=== PATIENT | male | born 1995 | race Caucasian/White ===

== ENCOUNTER 2017-10-23 18:25 | Emergency (ER) | payer BC ==
[2017-10-23] MEDS ORDERED: SODIUM CHLORIDE 0.9% FLUSH 10 ML FLUSH IVF (19:15)
[2017-10-23] MEDS ORDERED: RABIES IMMUNE GLOBULIN INJ 300 UNITS/2 ML VIAL IM (19:15)
[2017-10-23] MEDS: AMPICILLIN-SULBACTAM INJ 3 GM in SODIUM CHLORIDE 0.9% INJ 100 ML IV (20:51)
[2017-10-23] MEDS: KETOROLAC TROMETHAMINE 30 MG/ML (IVP) VIAL IVP (20:51)
[2017-10-23] MEDS: LIDOCAINE 2%/EPINEPHrine 1:100,000 20ML MDV NERV BLOCK (20:51)
[2017-10-23 20:56] LABS: AUTOMATED NEUTROPHIL # 14.5 TH/MM3 (1.8-7.7); BASOPHIL % 0.2 % (0.0-2.0); EOSINOPHIL # 0.1 TH/MM3 (0-0.4); EOSINOPHIL % 0.3 % (0.0-4.0); HEMO FLAGS DIFF FINAL; LYMPH % 10.3 % (9.0-44.0); LYMPHOCYTE # 1.8 TH/MM3 (1.0-4.8); MEAN CELL VOLUME 90.4 FL (80.0-100.0); MEAN CORPUSCULAR HEMOGLOBIN 30.9 PG (27.0-34.0); MEAN CORPUSCULAR HGB CONC 34.2 % (32.0-36.0); MEAN PLATELET VOLUME 8.3 FL (7.0-11.0); MONO % 6.9 % (0.0-8.0); MONOCYTE # 1.2 TH/MM3 (0-0.9); NEUT % 82.3 % (16.0-70.0); PLATELET COUNT 220 TH/MM3 (150-450); RED BLOOD COUNT 4.86 MIL/MM3 (4.50-5.90); RED CELL DISTRIBUTION WIDTH 14.1 % (11.6-17.2); WHITE BLOOD COUNT 17.6 TH/MM3 (4.0-11.0)
[2017-10-23] MEDS: TETANUS/DIPHTHERIA TOXOID ADULT 0.5 ML VIAL IM (21:13)
[2017-10-23] MEDS ORDERED: RABIES IMMUNE GLOBULIN INJ 1,500 UNITS/10 ML VIAL IM (21:15)
[2017-10-23] MEDS: RABIES IMMUNE GLOBULIN INJ 1,500 UNITS/10 ML VIAL IM (21:27)
== END 2017-10-23 22:11 | disposition home or self-care (01) ==
LOC: NEPC 18:25
DX: S01.85XA Open bite of other part of head, initial encounter (principal); W54.0XXA Bitten by dog, initial encounter; Y92.007 Garden or yard of unspecified non-institutional (private) residence as the place of occurrence of the external cause; G40.909 Epilepsy, unspecified, not intractable, without status epilepticus; F12.90 Cannabis use, unspecified, uncomplicated; Z23 Encounter for immunization
CPT/HCPCS: 12013; 12054; 85025; 90375; 90471; 90472; 90714; 96365; 96375; 99284-25

== ENCOUNTER 2017-10-26 13:29 | Emergency (ER) | payer BC ==
[~2017-10-26] VITALS: Ht 180.3 cm; Wt 59.0 kg
[~2017-10-26 13:29] MED LIST: AUGM875T3 PO; IBUP1TAB7 PO; TRAM50TA PO
[2017-10-26 13:31] VITALS: BP 127/91; PULSE 105; RESP 18; TEMP 98.9; O2SAT 99
--- NOTE | 2017-10-26 14:00 | PD ---
Physical Exam Time Seen by Provider: 13:58 Narrative 22-year-old male presents for a second round of rabies vaccination. Has no other medical complaints. Denies fever, vomiting. Patient seen in triage. VS reviewed. Awaiting bed placement. See next providers note for final patient disposition. Data Data Last Documented VS Vital Signs Date Time Temp Pulse Resp B/P (MAP) Pulse Ox O2 Delivery O2 Flow Rate FiO2 10/26/17 13:31 98.9 105 18 127/91 (103) 99 Room Air [facility] Supervised Visit with DORA: Blossom Sanchez Oct 26, 2017 14:00
[2017-10-26] MEDS ORDERED: RABIES VACCINE CHICK EMB INJ 2.5 UNITS/ML SYR IM ONE (14:15)
--- NOTE | 2017-10-26 15:44 | PD ---
HPI Chief Complaint: Medical Clearance Time Seen by Provider: 15:28 Travel History International Travel<30 days: No Contact w/Intl Traveler<30days: No Traveled to known affect area: No History of Present Illness HPI 22-year-old male presents emergency department for his second dose of rabies vaccination. Patient states that he was here several days ago after he was attacked by dogs. Patient states it is doing well other than having pain from his wounds. Patient denies fevers or chills. Denies nausea, vomiting or diarrhea. He has no other complaints today. PFSH Past Medical History Neurologic: Yes (EPILEPSY ) Social History Alcohol Use: No Tobacco Use: Yes Substance Use: Yes (CANNABIS) Allergies-Medications (Allergen,Severity, Reaction): Coded Allergies: No Known Allergies (Unverified , 10/23/17) Reported Meds & Prescriptions Reported Meds & Active Scripts Active Tramadol (Tramadol HCl) 50 Mg Tab 50 Mg PO Q6H PRN Ibuprofen 800 Mg Tab 800 Mg PO Q8H PRN Augmentin (Amoxicillin-Clavulanate) 875-125 Mg Tab 1 Tab PO BID 7 Days Review of Systems Except as stated in HPI: all other systems reviewed are Neg Physical Exam Narrative GENERAL: Well-nourished, well-developed patient. Sitting comfortably in bed SKIN: Focused skin assessment warm/dry. 3 mostly linear lacerations to the right face/cheek. Sutures in place. Minimal erythema. No exudate. HEAD: Normocephalic. EYES: No scleral icterus. No injection or drainage. NECK: Supple, trachea midline. No JVD MUSCULOSKELETAL: No cyanosis, or edema. BACK: Nontender without obvious deformity. No CVA tenderness. PSYCHIATRIC: No delusional thought processes. No hallucinations. Data Data Last Documented VS Vital Signs Date Time Temp Pulse Resp B/P (MAP) Pulse Ox O2 Delivery O2 Flow Rate FiO2 10/26/17 13:31 98.9 105 18 127/91 (103) 99 Room Air Orders Orders Rabies Vaccine Chick Emb Inj (Rabavert I (10/26/17 14:15) Ed Discharge Order (10/26/17 15:44) MDM Medical Decision Making Medical Screen Exam Complete: Yes Emergency Medical Condition: Yes Differential Diagnosis Rabies vaccination, medical clearance, wound check Narrative Course 22-year-old male presents emergency department for his second dose of rabies vaccination. Patient states that he was here several days ago after he was attacked by dogs. Patient states it is doing well other than having pain from his wounds. Patient denies fevers or chills. Denies nausea, vomiting or diarrhea. He has no other complaints today. Vital signs stable. Rabies vaccination administered today. Patient advised to follow-up today or and . Patient was advised to return on the last day of his vaccinations for suture removal. Advised patient that if he develops increased swelling, redness or pus return to the emergency Department immediately. Continue medications as prescribed. Diagnosis Primary Impression: Need for rabies vaccination Referrals: [facility] Additional Instructions: Your next follow-up is October 30, then November 06 for the vaccination. If he developed increased redness, swelling or pain return first department. Disposition: 01 DISCHARGE HOME Condition: Stable Heidi Maciel Oct 26, 2017 15:44
== END 2017-10-26 16:03 | disposition home or self-care (01) ==
LOC: NEPK 13:29
DX: Z29.14 Encounter for prophylactic rabies immune globulin (principal); G40.909 Epilepsy, unspecified, not intractable, without status epilepticus; Z72.0 Tobacco use
CPT/HCPCS: 90471; 90675

== ENCOUNTER 2017-11-02 20:12 | Emergency (ER) | payer BC ==
[~2017-11-02] VITALS: Ht 185.4 cm; Wt 68.0 kg
[2017-11-02 20:14] VITALS: BP 159/96; PULSE 106; RESP 18; TEMP 99; O2SAT 100
[2017-11-02] MEDS ORDERED: KETOROLAC TROMETHAMINE 30 MG/ML (IVP) VIAL IV PUSH ONE (21:00)
[2017-11-02] MEDS ORDERED: SODIUM CHLOR 0.9% 1000 ML INJ 1,000 ML IV ONE (21:00)
[2017-11-02] MEDS ORDERED: ONDANSETRON HCL 4 MG/2 ML VIAL IV PUSH ONE (21:00)
--- NOTE | 2017-11-02 21:09 | RADRPT ---
EXAM DATE/TIME: 11/02/2017 21:00 [facility] COMPARISON: No previous studies available for comparison. INDICATIONS : Fever, cough MEDICAL HISTORY : None. SURGICAL HISTORY : None. ENCOUNTER: Initial ACUITY: 3 days PAIN SCORE: 0/10 LOCATION: chest FINDINGS: PA and lateral views of the chest demonstrate the lungs to be symmetrically aerated without evidence of mass, infiltrate or effusion. The cardiomediastinal contours are unremarkable. Osseous structure s are intact. CONCLUSION: No acute disease. Marco Antonio Helton MD on November 02, 2017 at 21:07 Board Certified Radiologist. This report was verified electronically.
[2017-11-02 21:54] LABS: AUTOMATED NEUTROPHIL # 3.6 TH/MM3 (1.8-7.7); BASOPHIL % 0.3 % (0.0-2.0); HEMATOCRIT 42.6 % (39.0-51.0); HEMOGLOBIN 14.4 GM/DL (13.0-17.0); LYMPH % 12.6 % (9.0-44.0); LYMPHOCYTE # 0.6 TH/MM3 (1.0-4.8); MEAN CORPUSCULAR HEMOGLOBIN 30.6 PG (27.0-34.0); MEAN CORPUSCULAR HGB CONC 33.9 % (32.0-36.0); MEAN PLATELET VOLUME 7.6 FL (7.0-11.0); MONO % 11.3 % (0.0-8.0); MONOCYTE # 0.5 TH/MM3 (0-0.9); NEUT % 74.8 % (16.0-70.0); PLATELET COUNT 202 TH/MM3 (150-450); RED BLOOD COUNT 4.73 MIL/MM3 (4.50-5.90); RED CELL DISTRIBUTION WIDTH 13.9 % (11.6-17.2); WHITE BLOOD COUNT 4.9 TH/MM3 (4.0-11.0)
[2017-11-02 22:11] LABS: AST (GOT) 17 U/L (15-37); BICARBONATE 29.9 MEQ/L (21.0-32.0); BLOOD UREA NITROGEN 11 MG/DL (7-18); CALCIUM 8.5 MG/DL (8.5-10.1); CHLORIDE 105 MEQ/L (98-107); CREATININE 1.07 MG/DL (0.60-1.30); GLOMERULAR FILTRATION RATE 86 ML/MIN (>89); GLUCOSE,RANDOM 96 MG/DL (74-106); SODIUM (NA) 139 MEQ/L (136-145)
[2017-11-02 22:12] LABS: ALT (GPT) 20 U/L (12-78)
[2017-11-02 22:14] LABS: ALKALINE PHOSPHATASE 93 U/L (45-117); TOTAL BILIRUBIN ADULT 0.2 MG/DL (0.2-1.0); TOTAL PROTEIN 7.4 GM/DL (6.4-8.2)
--- NOTE | 2017-11-02 23:07 | PD ---
HPI Chief Complaint: Cold / Flu Symptoms Time Seen by Provider: 20:27 Travel History International Travel<30 days: No Contact w/Intl Traveler<30days: No Traveled to known affect area: No History of Present Illness HPI Patient is a 22 year old male who comes in complaining of bodyaches, cough, nausea, vomiting, fevers. He says this started yesterday. He denies abdominal pain. He was on antibiotics for a dog bite, which he finished 3 days ago. He says the wound seems to be doing well, but he has some pain around the corned of his mouth. He says he felt febrile, but he did not take his temperature. He says nothing makes his symptoms better or worse. He also reports missing his last rabies vaccine. [facility] Past Medical History Neurologic: Yes (EPILEPSY ) Social History Alcohol Use: No Tobacco Use: Yes Substance Use: Yes (CANNABIS) Allergies-Medications (Allergen,Severity, Reaction): Coded Allergies: No Known Allergies (Unverified , 11/02/17) Reported Meds & Prescriptions Reported Meds & Active Scripts Active Ibuprofen 800 Mg Tab 800 Mg PO Q8H PRN Review of Systems Except as stated in HPI: all other systems reviewed are Neg General / Constitutional: Positive: Fever, Chills HENT: Positive: Headaches, Congestion Cardiovascular: No: Chest Pain or Discomfort Respiratory: Positive: Cough, No: Shortness of Breath Gastrointestinal: Positive: Nausea, Vomiting, No: Abdominal Pain Genitourinary: No: Dysuria Musculoskeletal: Positive: Myalgias Skin: No Rash, No Change in Pigmentation Neurologic: No: Weakness, Dizziness Physical Exam Narrative GENERAL: Awake and alert, in no acute distress. SKIN: Focused skin assessment warm/dry. Wound to the face healing well, no erythema or oozing. HEAD: Atraumatic. Normocephalic. EYES: Pupils equal and round. No scleral icterus. No injection or drainage. ENT: Mucous membranes pink and moist. Wound near the right corned of the mouth with some dehiscence. NECK: Trachea midline. No JVD. CARDIOVASCULAR: Regular rate and rhythm. No murmur appreciated. RESPIRATORY: No accessory muscle use. Clear to auscultation. Breath sounds equal bilaterally. GASTROINTESTINAL: Abdomen soft, non-tender, nondistended. MUSCULOSKELETAL: No obvious deformities. No clubbing. No cyanosis. No edema. NEUROLOGICAL: Awake and alert. No obvious cranial nerve deficits. Motor grossly within normal limits. Normal speech. PSYCHIATRIC: Appropriate mood and affect; insight and judgment normal. Data Data Last Documented VS Vital Signs Date Time Temp Pulse Resp B/P (MAP) Pulse Ox O2 Delivery O2 Flow Rate FiO2 11/02/17 20:14 99.0 106 18 159/96 (117) 100 Orders Orders Iv Access Insert/Monitor (11/02/17 20:52) Complete Blood Count With Diff (11/02/17 20:52) Comprehensive Metabolic Panel (11/02/17 20:52) Influenzae A/B Antigen (11/02/17 20:52) Chest, Pa & Lat (11/02/17 ) Sodium Chlor 0.9% 1000 Ml Inj (Ns 1000 M (11/02/17 21:00) Ketorolac Inj (Toradol Inj) (11/02/17 21:00) Ondansetron Inj (Zofran Inj) (11/02/17 21:00) Rabies Vaccine Chick Emb Inj (Rabavert I (11/02/17 23:15) Labs Laboratory Tests Test 11/02/17 21:30 White Blood Count 4.9 TH/MM3 Red Blood Count 4.73 MIL/MM3 Hemoglobin 14.4 GM/DL Hematocrit 42.6 % Mean Corpuscular Volume 90.0 FL Mean Corpuscular Hemoglobin 30.6 PG Mean Corpuscular Hemoglobin Concent 33.9 % Red Cell Distribution Width 13.9 % Platelet Count 202 TH/MM3 Mean Platelet Volume 7.6 FL Neutrophils (%) (Auto) 74.8 % Lymphocytes (%) (Auto) 12.6 % Monocytes (%) (Auto) 11.3 % Eosinophils (%) (Auto) 1.0 % Basophils (%) (Auto) 0.3 % Neutrophils # (Auto) 3.6 TH/MM3 Lymphocytes # (Auto) 0.6 TH/MM3 Monocytes # (Auto) 0.5 TH/MM3 Eosinophils # (Auto) 0.0 TH/MM3 Basophils # (Auto) 0.0 TH/MM3 CBC Comment DIFF FINAL Differential Comment Blood Urea Nitrogen 11 MG/DL Creatinine 1.07 MG/DL Random Glucose 96 MG/DL Total Protein 7.4 GM/DL Albumin 4.0 GM/DL Calcium Level 8.5 MG/DL Alkaline Phosphatase 93 U/L Aspartate Amino Transf (AST/SGOT) 17 U/L Alanine Aminotransferase (ALT/SGPT) 20 U/L Total Bilirubin 0.2 MG/DL Sodium Level 139 MEQ/L Potassium Level 3.8 MEQ/L Chloride Level 105 MEQ/L Carbon Dioxide Level 29.9 MEQ/L Anion Gap 4 MEQ/L Estimat Glomerular Filtration Rate 86 ML/MIN MDM Medical Decision Making Medical Screen Exam Complete: Yes Emergency Medical Condition: Yes Medical Record Reviewed: Yes Differential Diagnosis Influenza vs URI vs pneumonia Narrative Course Patient is a 22 year old male who comes in complaining of bodyaches, fever, cough. IV established, labs sent. Labs show no acute abnormalities. Influenza screen is positive. Given IVF, Toradol, Zofran. He is eating and drinking without an issue. Patient given Rabies vaccine. Advised to drink plenty of fluids. Advised to take Tylenol or Ibuprofen for pain or fever. Given a prescription for Tamiflu and Keflex for his wound. Advised to return as needed for any worsening symptoms. Diagnosis Primary Impression: Influenza A Patient Instructions: General Instructions, Influenza (ED) Additional Instructions: Drink plenty of fluids. Take Tylenol or ibuprofen as needed for pain or fever. Follow up in 7 days for repeat rabies vaccine. Return as needed for any worsening symptoms. Scripts Cephalexin (Keflex) 500 Mg Capsule 500 MG PO Q6H for Infection for 7 Days, #28 CAP 0 Refills Prov: Miesha Putnam MD 11/02/17 Oseltamivir (Tamiflu) 75 Mg Cap 75 MG PO BID for Mgmt Viral Infection for 5 Days, #10 CAP 0 Refills Prov: Miesha Putnam MD 11/02/17 Disposition: 01 DISCHARGE HOME Condition: Stable Miesha Putnam MD Nov 02, 2017 23:07
[2017-11-02] MEDS ORDERED: RABIES VACCINE CHICK EMB INJ 2.5 UNITS/ML SYR IM ONE (23:15)
[2017-11-02] MEDS ORDERED: OSEL75 PO (23:28)
[2017-11-02] MEDS ORDERED: CEPH-460 PO (23:28)
[2017-11-03] VITALS: BP 125/80; PULSE 101; RESP 16; O2SAT 100
== END 2017-11-03 00:10 | disposition home or self-care (01) ==
LOC: NEPD 20:12
DX: J09.X2 Influenza due to identified novel influenza A virus with other respiratory manifestations (principal); R11.2 Nausea with vomiting, unspecified; G40.909 Epilepsy, unspecified, not intractable, without status epilepticus; Z72.0 Tobacco use; Z29.14 Encounter for prophylactic rabies immune globulin
CPT/HCPCS: 71046; 80053; 85025; 87804; 90471; 90675; 96361; 96374; 96375; 99284; J1885; J2405; J7030

== ENCOUNTER 2017-11-06 08:41 | Emergency (ER) | payer SELFPAY ==
[~2017-11-06] VITALS: Ht 180.3 cm; Wt 59.0 kg
[~2017-11-06 08:41] MED LIST changes: -AUGM875T3 PO; +CEPH-460 PO; +OSEL75 PO; -TRAM50TA PO
[2017-11-06 08:43] VITALS: BP 127/70; PULSE 89; RESP 14; TEMP 97.9; O2SAT 97
--- NOTE | 2017-11-06 09:33 | PD ---
HPI Chief Complaint: Wound/Suture/Staple Re-Check Time Seen by Provider: 09:32 Travel History International Travel<30 days: No Contact w/Intl Traveler<30days: No Traveled to known affect area: No History of Present Illness HPI 22-year-old male previously seen by myself 14 days ago for a dog bite from a pimple to the right facial area. Patient is here for wound check and suture removal. Patient has completed his rabies series, and the wound appears to be healing well without any complaints. Patient states he still has some residual numbness but it seems to be recovering well. He has no loss of function with smile or pucker of the lips. He has a small amount of crusting at the corner of the right lips which appears to be healing well. There is no sign of infection. He has no other complaints. Has no known drug allergies. PFSH Past Medical History Neurologic: Yes (EPILEPSY ) Immunizations Current: Yes (rabies vaccine 10/30) Social History Alcohol Use: No Tobacco Use: Yes (1 ppd) Substance Use: Yes (CANNABIS) Allergies-Medications (Allergen,Severity, Reaction): Coded Allergies: No Known Allergies (Unverified , 11/06/17) Reported Meds & Prescriptions Reported Meds & Active Scripts Active Keflex (Cephalexin) 500 Mg Capsule 500 Mg PO Q6H 7 Days Tamiflu (Oseltamivir Phosphate) 75 Mg Cap 75 Mg PO BID 5 Days Ibuprofen 800 Mg Tab 800 Mg PO Q8H PRN Review of Systems Except as stated in HPI: all other systems reviewed are Neg General / Constitutional: No: Fever Eyes: No: Visual changes HENT: No: Headaches Cardiovascular: No: Chest Pain or Discomfort Respiratory: No: Shortness of Breath Gastrointestinal: No: Abdominal Pain Genitourinary: No: Dysuria Musculoskeletal: No: Pain Skin: No Rash Neurologic: No: Weakness Psychiatric: No: Depression Endocrine: No: Polydipsia Hematologic/Lymphatic: No: Easy Bruising Physical Exam Narrative GENERAL: Patient appears in no acute distress. SKIN: Warm and dry. Normal color. Normal turgor. There are 3 lacerations to the right cheek and lips which appear to be well-healed without any signs of wound dehiscence or cellulitis. HEAD: Atraumatic. Normocephalic. EYES: Pupils equal and round. No scleral icterus. No injection or drainage. ENT: No nasal bleeding or discharge. Mucous membranes pink and moist. Pharynx is clear. Airway is patent. Patient is able to smile and pucker equally bilaterally. There is no residual buccal membrane injury. NECK: Trachea midline. Supple. CARDIOVASCULAR: Regular rate and rhythm. RESPIRATORY: No accessory muscle use. Clear to auscultation. Breath sounds equal bilaterally. MUSCULOSKELETAL: Extremities without clubbing, cyanosis, or edema. No obvious deformities. NEUROLOGICAL: Awake and alert. No obvious cranial nerve deficits. Motor grossly within normal limits. Five out of 5 muscle strength in the arms and legs. Normal speech. PSYCHIATRIC: Appropriate mood and affect; insight and judgment normal. Data Data Last Documented VS Vital Signs Date Time Temp Pulse Resp B/P (MAP) Pulse Ox O2 Delivery O2 Flow Rate FiO2 11/06/17 08:43 97.9 89 14 127/70 (89) 97 MDM Medical Decision Making Medical Screen Exam Complete: Yes Emergency Medical Condition: Yes Medical Record Reviewed: Yes Differential Diagnosis Dog bite. Facial laceration. Suture removal. Narrative Course All sutures are removed without difficulty. Last rabies vaccine is given. No further medical treatment is felt warranted at this time. Patient is to finish previous antibiotics as previously prescribed and follow up only as needed. Diagnosis Primary Impression: Dog bite of face Qualified Codes: S01.85XS - Open bite of other part of head, sequela; W54.0XXS - Bitten by dog, sequela Additional Impression: Encounter for removal of sutures Referrals: [facility] Patient Instructions: Acute Wound Care (GEN), General Instructions Additional Instructions: All sutures are removed without difficulty. Last rabies vaccine is given. No further medical treatment is felt warranted at this time. Patient is to finish previous antibiotics as previously prescribed and follow up only as needed. Med/Other Pt SpecificInfo: No Change to Meds Disposition: 01 DISCHARGE HOME Condition: Stable Richardson Pedroza Nov 06, 2017 09:33
[2017-11-06] MEDS ORDERED: RABIES VACCINE CHICK EMB INJ 2.5 UNITS/ML SYR IM ONE (09:45)
== END 2017-11-06 10:15 | disposition home or self-care (01) ==
LOC: NEPK 08:41
DX: Z48.02 Encounter for removal of sutures (principal)
CPT/HCPCS: 90675; 99281